=== PATIENT | female | born 1945 ===

== ENCOUNTER 2022-11-09 10:34 | Inpatient (IN) | payer OTHER ==
[~2022-11-09] VITALS: Ht 162.6 cm; Wt 68.9 kg
[2022-11-10] MEDS ORDERED: SYNTHROID75 MCG PO (11:12)
[2022-11-10] MEDS ORDERED: PROTONIX40 MG PO (11:12)
[2022-11-10] MEDS ORDERED: ZOCOR40 MG PO (11:12)
[2022-11-10] MEDS ORDERED: PEPCID AC20 MG PO (11:13)
[2022-11-10] MEDS ORDERED: ABATINEX680 MG PO (11:13)
[2022-11-10] MEDS ORDERED: METAMUCIL0.4 GM PO (11:14)
[2022-11-10] MEDS ORDERED: MULTIPLE VITAM1 EAC2 PO (11:14)
[2022-11-15] MEDS ORDERED: B-122500 MCG (07:58)
== END 2022-11-18 12:31 | disposition home or self-care (01) | DRG 331 ==
LOC: O/R 11-15 04:50 → SURG 11-15 04:50
PROVIDERS: Internal Medicine Geriatric Medicine; ADMIT Colon & Rectal Surgery; ATTEND Colon & Rectal Surgery
PROC: 0DBP4ZZ Excision of Rectum, Percutaneous Endoscopic Approach (ICD-10-PCS; 2022-11-15)
PROC: 0DJD8ZZ Inspection of Lower Intestinal Tract, Via Natural or Artificial Opening Endoscopic (ICD-10-PCS; 2022-11-15)
PROC: 0DTN4ZZ Resection of Sigmoid Colon, Percutaneous Endoscopic Approach (ICD-10-PCS; principal; 2022-11-15 07:00)
DX: K57.30 Diverticulosis of large intestine without perforation or abscess without bleeding (principal); K21.9 Gastro-esophageal reflux disease without esophagitis; E03.9 Hypothyroidism, unspecified